=== PATIENT | male | born 1965 | race American Indian/Alaskan Native ===

== ENCOUNTER 2017-10-29 17:56 | Emergency (ER) | payer OTHER ==
[2017-10-29 22:59] VITALS: BP 162/117
[2017-10-29] MEDS ORDERED: PERCOCET 5/325 PO ONE (23:29)
[2017-10-29] MEDS ORDERED: TORADOL IM ONE (23:29)
--- NOTE | 2017-10-29 23:34 | Emergency Department Report ---
ED Back Pain/Injury HPI - General Chief Complaint: Extremity Injury, Lower Stated Complaint: HIP/LOWER BACK PAIN Time Seen by Provider: 10/29/17 23:15 Source: patient Limitations: No Limitations - History of Present Illness MD Complaint: back pain -: week(s) (1) Similar Symptoms Previously: No Place: home Consistency: constant Improves With: none Worsens With: movement, walking Context: while lifting, turning/twisting, bending Associated Symptoms: denies other symptoms Treatments Prior to Arrival: NSAIDS (MOTRIN) - Related Data Previous Rx's Medication Instructions Recorded Last Taken Type Albuterol Sulfate [Proventil Hfa] 6.7 gm IH Q6HR #1 hfa.aer.ad 10/30/17 Unknown Rx oxyCODONE /ACETAMINOPHEN [Percocet 2 tab PO Q6HR PRN #14 tablet 10/30/17 Unknown Rx 5/325] Allergies Allergy/AdvReac Type Severity Reaction Status Date / Time shellfish derived Allergy Hives Verified 10/29/17 18:47 ED Review of Systems ROS: Stated complaint: HIP/LOWER BACK PAIN Other details as noted in HPI Constitutional: denies: chills, fever Eyes: denies: eye pain, eye discharge, vision change ENT: denies: ear pain, throat pain Respiratory: denies: cough, shortness of breath, wheezing Cardiovascular: denies: chest pain, palpitations Endocrine: no symptoms reported Gastrointestinal: denies: abdominal pain, nausea, diarrhea Genitourinary: denies: urgency, dysuria Musculoskeletal: denies: joint swelling, arthralgia Skin: denies: rash, lesions Neurological: other (NO URINARY OR FECAL RETENTION OR INCONTINENCE). denies: headache, weakness, paresthesias Psychiatric: denies: anxiety, depression Hematological/Lymphatic: denies: easy bleeding, easy bruising ED Past Medical Hx - Past Medical History Previous Medical History?: Yes Hx Hypertension: No Hx Asthma: Yes - Surgical History Additional Surgical History: FATTY TUMOR REMOVED FROM BACK OF NEXT AT AGE 12 - Family History Family history: hypertension - Social History Smoking Status: Never Smoker Substance Use Type: Alcohol - Medications Home Medications: Home Medications Medication Instructions Recorded Confirmed Last Taken Type Albuterol Sulfate [Proventil Hfa] 6.7 gm IH Q6HR #1 hfa.aer.ad 10/30/17 Unknown Rx oxyCODONE /ACETAMINOPHEN [Percocet 2 tab PO Q6HR PRN #14 tablet 10/30/17 Unknown Rx 5/325] ED Physical Exam - General Limitations: No Limitations General appearance: alert, in no apparent distress - Head Head exam: Present: atraumatic, normocephalic - Eye Eye exam: Present: normal appearance, EOMI - ENT ENT exam: Present: mucous membranes moist - Neck Neck exam: Present: normal inspection - Respiratory Respiratory exam: Present: normal lung sounds bilaterally. Absent: respiratory distress - Cardiovascular Cardiovascular Exam: Present: regular rate, normal rhythm. Absent: systolic murmur, diastolic murmur, rubs, gallop - GI/Abdominal GI/Abdominal exam: Present: soft, normal bowel sounds - Rectal Rectal exam: Present: deferred - Extremities Exam Extremities exam: Present: normal inspection, full ROM, tenderness (RIGHT SI JOINT) - Back Exam Back exam: Present: normal inspection, full ROM, tenderness (RIGHT DSI JOITN TENDERNESS) - Neurological Exam Neurological exam: Present: alert, oriented X3, CN II-XII intact - Psychiatric Psychiatric exam: Present: normal affect, normal mood - Skin Skin exam: Present: warm, dry, intact, normal color. Absent: rash ED Course Vital Signs 10/29/17 10/29/17 18:37 22:58 Temperature 98.3 F Pulse Rate 75 66 Blood Pressure 191/131 Blood Pressure 162/117 [Left] O2 Sat by Pulse 100 Oximetry ED Medical Decision Making - Radiology Data Radiology results: report reviewed (PELVIS: MILD DJD) Critical care attestation.: If time is entered above; I have spent that time in minutes in the direct care of this critically ill patient, excluding procedure time. ED Disposition Clinical Impression: Sciatic leg pain, DJD (degenerative joint disease) of pelvis Disposition: DC-01 TO HOME OR SELFCARE Is pt being admited?: No Does the pt Need Aspirin: No Condition: Stable Instructions: Sciatica (ED), Osteoarthritis (ED) Additional Instructions: PLEASE REST YOUR AND ,USE HEATING PAD, TAKE YOUR MEDICATION AND SEE YOUR DOCTOR IN 2 DAYS. RETURN TO THE ER FOR WORSENIG , OR NEW SYMPTOMS OR FOR ANY CONCERNS Prescriptions: Albuterol Sulfate [Proventil Hfa] 6.7 gm IH Q6HR #1 hfa.aer.ad oxyCODONE /ACETAMINOPHEN [Percocet 5/325] 2 tab PO Q6HR PRN #14 tablet PRN Reason: Pain Referrals: YEMI YANG MD [Primary Care Provider] - 3-5 Days Time of Disposition: 02:36
--- NOTE | 2017-10-30 00:12 | XRay Report ---
FINAL REPORT PROCEDURE: XR PELVIS 1-2V TECHNIQUE: Pelvis radiograph, AP view. CPT 73244 HISTORY: PAIN RT PELVIC PAIN COMPARISON: No prior studies are available for comparison. FINDINGS: Fracture(s): None . Joint spaces: There is mild degenerative arthrosis of the hip joints. There is no dislocation.. Soft tissues: Normal . Foreign bodies: None . Bone mineralization: Normal . IMPRESSION: The sacrum, sacroiliac joints, iliac wings, symphysis pubis and pubic rami are intact. There are mild degenerative changes of the hip joints.
== END 2017-10-30 02:30 | disposition home or self-care (01) ==
LOC: ED 17:56
DX: M54.41 Lumbago with sciatica, right side (principal); M19.90 Unspecified osteoarthritis, unspecified site; J45.909 Unspecified asthma, uncomplicated; Z98.890 Other specified postprocedural states; Z91.013 Allergy to seafood
CPT/HCPCS: 72170; 96372; 99283; J1885